=== PATIENT | female | born 1995 | race Two or more races ===

== ENCOUNTER 2021-10-23 01:00 | Inpatient (IN) | payer BC, OTHER ==
[2021-10-23] MEDS ORDERED: ELECTROLYTE-148 SOLN 1,000 ML IV SCH (03:00)
[2021-10-23] MEDS: ELECTROLYTE-148 SOLN 1,000 ML IV SCH ×2 (08:25→13:56)
[2021-10-23] MEDS ORDERED: OXYTOCIN 30 UNITS in 0.9% NS 30 UNIT/500 ML INFUS.BAG IVPB SCH (08:30)
[2021-10-23] MEDS ORDERED: AMPICILLIN - 2 GM in SODIUM CHLORIDE 100 ML IVPB ONE (08:41)
[2021-10-23 08:50] VITALS: BMI 33.5
[2021-10-23] MEDS ORDERED: OXYTOCIN 30 UNITS in 0.9% NS 30 UNIT/500 ML INFUS.BAG IVPB ONE (08:57)
[2021-10-23] MEDS ORDERED: AMPICILLIN SODIUM 2 GM VIAL ONE (08:57)
[2021-10-23 09:42] LABS: BASO % 0.4 % (0-2.0); EOS % 0.3 % (0-4.5); HEMATOCRIT 34.9 % (32.4-45.2); HEMOGLOBIN 11.9 GM/dL (10.7-15.3); LYMPH % 11.7 % (8-40); MCH 30.3 pg (25.7-33.7); MCHC 34.1 g/dl (32.0-36.0); MEAN CELL VOLUME 88.8 fl (80-96); MEAN PLT VOLUME 9.7 fl (7.5-11.1); MONO % 5.6 % (3.8-10.2); PLATELET COUNT 235 10^3/uL (134-434); RBC 3.93 M/mm3 (3.60-5.2); WHITE BLOOD COUNT 14.9 K/mm3 (4.0-10.0)
[2021-10-23 09:46] LABS: INR 0.95 (0.83-1.09); PROTHROMBIN TIME (PATIENT) 10.9 SEC (9.7-13.0)
[2021-10-23 09:49] LABS: ACTIVATED PTT 23.8 SECONDS (25.2-36.5)
[2021-10-23 09:59] LABS: BLOOD UREA NITROGEN 5.4 mg/dL (7-18)
[2021-10-23 10:02] LABS: CALCIUM 8.6 mg/dL (8.5-10.1)
[2021-10-23 10:03] LABS: CREATININE 0.5 mg/dL (0.55-1.3)
[2021-10-23] MEDS ORDERED: FENTANYL/BUPIVACAINE/NS/PF - PCEA - 50 ML DISP.SYRIN EP ONE ×2 (10:03→14:18)
[2021-10-23] MEDS ORDERED: BUPIVACAINE HCL/PF 0.25% (2.5MG/ML) 10 ML VIAL ONE (10:12)
[2021-10-23] MEDS: FENTANYL/BUPIVACAINE/NS/PF - PCEA - 50 ML DISP.SYRIN EP SCH ×2 (10:35→14:26)
[2021-10-23] MEDS ORDERED: NALOXONE HCL 0.4 MG/ML VIAL IVPUSH PRN (10:40)
[2021-10-23] MEDS ORDERED: AMPICILLIN SODIUM 1 GM VIAL ONE (12:17)
[2021-10-23] MEDS ORDERED: AMPICILLIN - 1 GM in SODIUM CHLORIDE 100 ML IVPB SCH (12:45)
[2021-10-23] MEDS ORDERED: OXYTOCIN 20 UNITS in 0.9% NS 20 UNIT/1,000 ML INFUS.BAG IV ONE (14:40)
[2021-10-23] MEDS ORDERED: METHYLERGONOVINE MALEATE 0.2 MG/1 ML AMP IM PRN (17:53)
[2021-10-23] MEDS ORDERED: BENZOCAINE 20% 57 GM BOTTLE TP PRN (17:53)
[2021-10-23] MEDS ORDERED: oxyCODONE HCL 5 MG TABLET PO PRN (17:53)
[2021-10-23] MEDS ORDERED: BENZOCAINE 28 GM HEMORRHOIDAL OINTMENT TP PRN (17:53)
[2021-10-23] MEDS ORDERED: WITCH HAZEL 50% (TUCKS) 40 PAD/JAR PAD TP PRN (17:53)
[2021-10-23] MEDS ORDERED: BISACODYL 10 MG SUPP.RECT RC PRN (17:53)
[2021-10-23] MEDS ORDERED: OXYTOCIN 20 UNITS in 0.9% NS 20 UNIT/1,000 ML INFUS.BAG IV SCH (18:00)
[2021-10-23] MEDS: IBUPROFEN 600 MG TABLET (FP) PO PRN (20:21)
[2021-10-24 07:20] LABS: BASO % 0.3 % (0-2.0); EOS % 0.9 % (0-4.5); HEMATOCRIT 24.2 % (32.4-45.2); LYMPH % 14.1 % (8-40); MCH 30.2 pg (25.7-33.7); MEAN CELL VOLUME 91.3 fl (80-96); MEAN PLT VOLUME 10.2 fl (7.5-11.1); MONO % 7.7 % (3.8-10.2); PLATELET COUNT 190 10^3/uL (134-434); RBC 2.65 M/mm3 (3.60-5.2); RDW 13.9 % (11.6-15.6); WHITE BLOOD COUNT 16.6 K/mm3 (4.0-10.0)
[2021-10-24] MEDS: FERROUS SO4 325 MG TABLET (FP) PO SCH ×2 (11:20→21:11)
[2021-10-24] MEDS: IBUPROFEN 600 MG TABLET (FP) PO PRN (12:01)
[2021-10-24 15:26] VITALS: RESP 18
[2021-10-24] MEDS: ACETAMINOPHEN 325 MG TABLET (FP) PO PRN ×2 (17:58→21:12)
[2021-10-24] MEDS ORDERED: SENNOSIDES/DOCUSATE COMBO (SENNA PLUS) TABLET (UD) PO PRN (22:00)
[2021-10-25] MEDS: IBUPROFEN 600 MG TABLET (FP) PO PRN (00:08)
[2021-10-25 09:22] VITALS: BP 123/74; PULSE 72; TEMP 99.1
[2021-10-25] MEDS: FERROUS SO4 325 MG TABLET (FP) PO SCH (09:54)
== END 2021-10-25 13:00 | disposition home or self-care (01) | DRG 807 ==
LOC: JDEL 01:00 → JLDR 08:20 → J3W 19:32
PROVIDERS: ADMIT Specialist; ATTEND Specialist
PROC: 0KQM0ZZ Repair Perineum Muscle, Open Approach (ICD-10-PCS; principal; 2021-10-23)
PROC: 10E0XZZ Delivery of Products of Conception, External Approach (ICD-10-PCS; 2021-10-23)
DX: O99.02 Anemia complicating childbirth (principal); Z37.0 Single live birth; O70.1 Second degree perineal laceration during delivery; Z3A.39 39 weeks gestation of pregnancy; D64.9 Anemia, unspecified
CPT/HCPCS: 36415; 59409; 80048; 85025; 85610; 85730; 86780; 86850; 86900; 86901; C9803-CS; U0003; U0005